=== PATIENT | female | born 1945 | race Caucasian/White ===

== ENCOUNTER 2016-09-01 19:33 | Inpatient (IN) | payer MEDICARE ==
[~2016-09-01] VITALS: Ht 162.6 cm; Wt 70.0 kg
[2016-09-01 20:38] VITALS: BP 118/74; PULSE 75; TEMP 97.5
[2016-09-01 21:34] LABS: BASO # 0.1 (0.0-0.2); BASO % 1.2 % (0.0-2.0); EOS # 0.4 (0.0-0.7); EOS % 5.8 % (0-4.0); GRAN # 2.2 (1.4-6.5); GRAN % 36.8 % (42.2-75.2); LYMPH # 2.5 (1.2-3.4); LYMPH % 41.2 % (20.0-51.0); MEAN CELL VOLUME 90 fl (80.0-100.0); MEAN CORPUSCULAR HGB CONC 33 g/dl (33.0-37.0); MEAN PLATELET VOLUME 11.4 fl (7.4-10.4); MONO # 0.9 (0.1-0.6); MONO % 14.7 % (1.7-9.3); PLATELET COUNT 176 K/mm3 (130-400); RED BLOOD COUNT 3.74 M/mm3 (4.10-5.30); REDCELL DISTRIBUTION WIDTH-CV 15.4 % (11.5-14.5); WHITE BLOOD COUNT 6.1 K/mm3 (4.8-10.8)
[2016-09-01 21:35] LABS: HEMATOCRIT 33.7 % (37.0-47.0); HEMOGLOBIN 11.1 g/dl (12.5-16.0); MEAN CORPUSCULAR HEMOGLOBIN 30 pg (27.0-31.0)
[2016-09-01 21:38] LABS: INR 1.1 (0.8-3.0); PROTHROMBIN TIME 12.6 SECONDS (9.7-12.8)
[2016-09-01 21:45] LABS: ADJUSTED CALCIUM 9.2 mg/dL (8.4-10.2); BILIRUBIN,TOTAL 0.7 mg/dL (0.0-1.0); CALCIUM 8.4 mg/dL (8.4-10.2); CREATININE, serum 0.8 mg/dL (0.52-1.25); TOTAL PROTEIN 5.8 gm/dL (6.4-8.2)
[2016-09-01 21:47] LABS: POTASSIUM 2.9 mmol/L (3.4-5.0)
[2016-09-02 00:37] VITALS: BP 113/64; PULSE 84; TEMP 98.2
[2016-09-02] MEDS ORDERED: ASPIRIN 32325 MG/TAB PO (01:56)
[2016-09-02] MEDS ORDERED: SYNTHROID 0.10.15 MG PO (01:57)
[2016-09-02] MEDS ORDERED: LEXAPRO 10MG10 MG PO (01:58)
[2016-09-02] MEDS ORDERED: LYRICA 75MG CAP75 MG PO (01:59)
[2016-09-02] MEDS ORDERED: WELLBUTRIN XL150 MG PO (02:00)
[2016-09-02] MEDS ORDERED: PRAVACHOL80 MG PO (02:00)
[2016-09-02] MEDS ORDERED: RT SPIRIVA18 MCG IH (02:01)
[2016-09-02] MEDS ORDERED: [UNRECOGNIZED DRUG - OTHER] (02:04)
[2016-09-02 05:07] VITALS: BP 120/69; PULSE 82; TEMP 98.5
[2016-09-02] MEDS ORDERED: PROTONIX 40MG T40 MG PO (07:42)
[2016-09-02 07:46] LABS: MEAN CELL VOLUME 91 fl (80.0-100.0); MEAN CORPUSCULAR HGB CONC 33 g/dl (33.0-37.0); MEAN PLATELET VOLUME 12.4 fl (7.4-10.4); PLATELET COUNT 177 K/mm3 (130-400); RED BLOOD COUNT 3.59 M/mm3 (4.10-5.30); REDCELL DISTRIBUTION WIDTH-CV 15.3 % (11.5-14.5); WHITE BLOOD COUNT 4.6 K/mm3 (4.8-10.8)
[2016-09-02 07:49] LABS: HEMATOCRIT 32.8 % (37.0-47.0); HEMOGLOBIN 10.8 g/dl (12.5-16.0); MEAN CORPUSCULAR HEMOGLOBIN 30 pg (27.0-31.0)
[2016-09-02 07:56] LABS: INR 1.2 (0.8-3.0); PROTHROMBIN TIME 13.6 SECONDS (9.7-12.8)
[2016-09-02 08:01] LABS: CALCIUM 8.2 mg/dL (8.4-10.2); CREATININE, serum 0.74 mg/dL (0.52-1.25); POTASSIUM 3.3 mmol/L (3.4-5.0)
[2016-09-02 08:30] VITALS: BP 124/71; PULSE 79; TEMP 97.8
[2016-09-02] MEDS ORDERED: WELLBUTRIN 75MG75 MG PO (11:54)
[2016-09-02 12:03] VITALS: BP 104/67; PULSE 84; TEMP 98.4
[2016-09-02 16:04] VITALS: BP 128/73; PULSE 103; TEMP 98.2
[2016-09-02 20:24] VITALS: BP 123/64; PULSE 81; TEMP 97.7
[2016-09-03 00:17] VITALS: BP 117/77; PULSE 82; TEMP 98.2
[2016-09-03 04:48] VITALS: BP 157/70; PULSE 73; TEMP 97.6
[2016-09-03 08:39] VITALS: BP 99/59; PULSE 111; TEMP 97.8
[2016-09-03 09:36] LABS: INR 1.7 (0.8-3.0); PROTHROMBIN TIME 18.7 SECONDS (9.7-12.8)
[2016-09-03 09:41] LABS: BASO # 0.1 (0.0-0.2); CALCIUM 8.1 mg/dL (8.4-10.2); CREATININE, serum 0.72 mg/dL (0.52-1.25); EOS # 0.3 (0.0-0.7); GRAN # 2.2 (1.4-6.5); GRAN % 44.4 % (42.2-75.2); LYMPH # 1.8 (1.2-3.4); LYMPH % 35.9 % (20.0-51.0); MEAN CELL VOLUME 92 fl (80.0-100.0); MEAN CORPUSCULAR HGB CONC 32 g/dl (33.0-37.0); MEAN PLATELET VOLUME 12.4 fl (7.4-10.4); MONO # 0.6 (0.1-0.6); MONO % 12.5 % (1.7-9.3); PLATELET COUNT 188 K/mm3 (130-400); POTASSIUM 3.8 mmol/L (3.4-5.0); RED BLOOD COUNT 3.81 M/mm3 (4.10-5.30); REDCELL DISTRIBUTION WIDTH-CV 15.6 % (11.5-14.5)
[2016-09-03 09:42] LABS: HEMATOCRIT 35.2 % (37.0-47.0); HEMOGLOBIN 11.2 g/dl (12.5-16.0); MEAN CORPUSCULAR HEMOGLOBIN 29 pg (27.0-31.0)
[2016-09-03] MEDS ORDERED: XARELTO20 MG PO ×2 (10:03→10:05)
[2016-09-03] MEDS ORDERED: XARELTO STARTER20 MG PO (10:03)
== END 2016-09-03 11:20 | disposition home or self-care (01) | DRG 175 ==
LOC: MEDICAL 19:33
PROVIDERS: Internal Medicine; Physician Assistant
DX: I26.99 Other pulmonary embolism without acute cor pulmonale (principal); E43 Unspecified severe protein-calorie malnutrition; I69.354 Hemiplegia and hemiparesis following cerebral infarction affecting left non-dominant side; J90 Pleural effusion, not elsewhere classified; E87.6 Hypokalemia; E03.9 Hypothyroidism, unspecified; J44.9 Chronic obstructive pulmonary disease, unspecified; F32.9 Major depressive disorder, single episode, unspecified; Z98.84 Bariatric surgery status; Z87.891 Personal history of nicotine dependence; Z96.653 Presence of artificial knee joint, bilateral
CPT/HCPCS: 99223-AI; 99232-AI; 99239; J1650